=== PATIENT | male | born 1945 | race Caucasian/White ===

== ENCOUNTER 2017-12-08 13:26 | Outpatient (CLI) | payer OTHER, MEDICARE ==
[2017-12-08] MEDS ORDERED: LISI1TAB9 PO (13:45)
[2017-12-08] MEDS ORDERED: FLUT16SP2 BOTHNARES (13:45)
[2017-12-08] MEDS ORDERED: IBUP-24 PO (13:46)
[2017-12-08] MEDS ORDERED: MELA3TAB PO (13:46)
[2017-12-08] MEDS ORDERED: ASPI-1265 PO (13:46)
[2017-12-08] MEDS ORDERED: CHOL100046 PO (13:46)
[2017-12-08 14:49] LABS: BASOPHILS % (AUTO) 0.3 % (0-1); EOSINOPHILS # (AUTO) 0.1 X10'3 (0-0.9); EOSINOPHILS % (AUTO) 1.2 % (0-6); LYMPHOCYTES # (AUTO) 1.2 X10'3 (1.1-4.8); LYMPHOCYTES % (AUTO) 20.2 % (21-51); MEAN CORPUSCULAR HEMOGLOBIN 33.7 PG (27.0-31.0); MEAN CORPUSCULAR HGB CONC 34.1 % (33.0-36.5); MEAN CORPUSCULAR VOLUME 98.6 FL (78-98); MEAN PLATELET VOLUME 9.3 FL (7.4-10.4); MONOCYTES # (AUTO) 0.4 X10'3 (0-0.9); MONOCYTES % (AUTO) 6.4 % (2-12); NEUTROPHILS # (AUTO) 4.1 X10'3 (1.8-7.7); NEUTROPHILS % (AUTO) 71.9 % (42-75); PRE OP HEMOGLOBIN 14.3 g/dL (14.0-17.9); PRE OP PLATELET COUNT 244 X10'3 (140-440); PRE OP PROTIME 10.8 SECONDS (9.0-12.0); RED BLOOD COUNT 4.26 X10'6 (4.70-6.10); RED CELL DISTRIBUTION WIDTH 12.5 % (11.5-14.5)
[2017-12-08 14:54] LABS: CLARITY,URINE CLEAR (Clear); COLOR,URINE YELLOW (Yellow); GLUCOSE, URINE 100 mg/dl (Neg); KETONES,URINE NEGATIVE (Neg); LEUKOCYTE ESTERASE ,URINE NEGATIVE (Neg); NITRITES, URINE NEGATIVE (Neg); OCCULT BLOOD,URINE NEGATIVE (Neg); PROTEIN,URINE NEGATIVE (Neg); UROBILINOGEN,URINE 0.2 E.U/dL (0.2-1.0)
[2017-12-08 14:55] LABS: ALBUMIN 4.1 G/DL (3.4-5.0); ALBUMIN/GLOBULIN RATIO 1.5 (1.1-1.5); ALKALINE PHOSPHATASE 63 IU/L (46-116); BLOOD UREA NITROGEN 18 MG/DL (7-18); BUN/CREATININE RATIO 15.1 (5.4-32.0); CALCIUM 8.8 MG/DL (8.5-10.1); CHLORIDE 104 MMOL/L (99-107); CREATININE 1.19 MG/DL (0.60-1.10); PRE OP ALT 35 U/L (30-65); PRE OP ANION GAP 9 (8-16); PRE OP AST 29 U/L (10-37); PRE OP BILIRUB, TOTAL 0.9 MG/DL (0.0-1.0); PRE OP GLUCOSE 126 MG/DL (70-104); PRE OP POTASSIUM 3.5 MMOL/L (3.4-5.1); PRE OP SODIUM 141 MMOL/L (135-145); TOTAL CARBON DIOXIDE 27.8 MMOL/L (24-32); TOTAL PROTEIN 6.9 G/DL (6.4-8.2); eGFR 60 ML/MIN
[2017-12-08 15:00] LABS: UA COLLECTION TYPE CLN CATCH MIDSTREAM
== END 2017-12-08 23:59 | disposition home or self-care (01) ==
LOC: PRE-OP 13:26 → EDSTATUS 12-15 14:00
PROVIDERS: ATTEND Orthopaedic Surgery
DX: Z01.818 Encounter for other preprocedural examination (principal); M16.11 Unilateral primary osteoarthritis, right hip; Z79.82 Long term (current) use of aspirin; Z87.891 Personal history of nicotine dependence; M25.551 Pain in right hip; Z00.00 Encounter for general adult medical examination without abnormal findings; Z01.812 Encounter for preprocedural laboratory examination
CPT/HCPCS: 36415; 71046; 80053; 81003; 85025; 85610; 85730; 86885; 86900; 86901; 87070

== ENCOUNTER 2018-01-14 05:16 | Inpatient (IN) | payer MEDICARE, OTHER ==
[~2018-01-14] VITALS: Ht 175.3 cm; Wt 83.3 kg
[2018-01-14] VITALS (14 sets, daily range): BP systolic 68–138; BP diastolic 38–87
[~2018-01-14 05:16] MED LIST: ASPI-1265 PO; CHOL100046 PO; FLUT16SP2 BOTHNARES; IBUP-24 PO; LISI1TAB9 PO; MELA3TAB PO; ringers solution, lacted 1,000 ML IV SCH
[2018-01-14] MEDS ORDERED: oxyCODONE SR 10mg (sust. release) tab -2 tabs (20mg) PO ONE (05:30)
[2018-01-14] MEDS ORDERED: celeCOXIB 100mg capsule PO ONE (05:30)
[2018-01-14] MEDS ORDERED: acetaminophen 325mg tablet PO ONE (05:30)
[2018-01-14] MEDS ORDERED: tranexamic acid inj. 1,000 MG in normal saline 100ml IV soln 90 ML IV ONE (05:30)
[2018-01-14] MEDS ORDERED: VANCOMYCIN INJ 1000 MG in NORMAL SALINE 250ml IV.SOLN IV ONE (05:30)
[2018-01-14] MEDS ORDERED: gabapentin 300mg capsule PO ONE (05:30)
[2018-01-14] MEDS ORDERED: metoclopramide 5 mg/ml inj IV ONE (05:30)
[2018-01-14] MEDS ORDERED: cefazolin/dext.iso 2gm/100 ML IV ONE (05:30)
[2018-01-14] MEDS ORDERED: famotidine 20mg tablet PO ONE (05:30)
[2018-01-14] MEDS ORDERED: LIDOcaine 1% (10mg/ml) 2ml vial ONE (05:54)
[2018-01-14] MEDS ORDERED: acetaminophen 325mg tablet PO PRN (06:50)
[2018-01-14] MEDS ORDERED: bisacodyl 10mg suppository rectal RC PRN (06:50)
[2018-01-14] MEDS ORDERED: magnesium hydroxide 30ml (MOM) UD suspension PO PRN (06:50)
[2018-01-14] MEDS ORDERED: HYDROmorphone 1 mg/ml syringe IV PRN (06:50)
[2018-01-14] MEDS ORDERED: diphenhydrAMINE 25mg capsule PO PRN ×2 (06:50)
[2018-01-14] MEDS ORDERED: HYDROcodone/acetaminophen 10/325mg tab PO PRN (06:50)
[2018-01-14] MEDS ORDERED: fluticasone nasal spray 16GM bottle NS PRN (06:50)
[2018-01-14] MEDS ORDERED: ondansetron/PF 4mg/2ml inj IV PRN ×3 (06:50→08:05)
[2018-01-14] MEDS ORDERED: HYDROmorphone inj. 0.5 MG/0.5 ML DISP.SYRIN IV PRN (06:50)
[2018-01-14] MEDS ORDERED: vancomycin 1,000mg inj ONE (06:54)
[2018-01-14 07:00] LABS: BASOPHILS % (AUTO) 0.4 % (0-1); EOSINOPHILS # (AUTO) 0.1 X10'3 (0-0.9); EOSINOPHILS % (AUTO) 1.3 % (0-6); LYMPHOCYTES # (AUTO) 1.3 X10'3 (1.1-4.8); LYMPHOCYTES % (AUTO) 21.2 % (21-51); MEAN CORPUSCULAR HEMOGLOBIN 34.1 PG (27.0-31.0); MEAN CORPUSCULAR HGB CONC 34.7 % (33.0-36.5); MEAN CORPUSCULAR VOLUME 98.1 FL (78-98); MEAN PLATELET VOLUME 9.6 FL (7.4-10.4); MONOCYTES # (AUTO) 0.3 X10'3 (0-0.9); MONOCYTES % (AUTO) 5.1 % (2-12); NEUTROPHILS # (AUTO) 4.3 X10'3 (1.8-7.7); PRE OP HEMATOCRIT 43.2 % (42.0-52.0); PRE OP PLATELET COUNT 220 X10'3 (140-440); RED CELL DISTRIBUTION WIDTH 12.1 % (11.5-14.5)
[2018-01-14] MEDS ORDERED: tetracaine 1% (10mg/ml) pres. free inj. ONE (07:10)
[2018-01-14] MEDS ORDERED: morphine /PF 1mg/ml 10ml inj. ONE (07:12)
[2018-01-14] MEDS ORDERED: MIDAZolam 1mg/ml 10ml vial ONE (07:12)
[2018-01-14] MEDS ORDERED: fentaNYL/PF 50MCG/1 ML 2ML syringe ONE (07:12)
[2018-01-14 07:15] LABS: ALBUMIN 3.9 G/DL (3.4-5.0); ALBUMIN/GLOBULIN RATIO 1.3 (1.1-1.5); ALKALINE PHOSPHATASE 65 IU/L (46-116); BLOOD UREA NITROGEN 20 MG/DL (7-18); BUN/CREATININE RATIO 18.5 (5.4-32.0); CALCIUM 9.4 MG/DL (8.5-10.1); CHLORIDE 106 MMOL/L (99-107); CREATININE 1.08 MG/DL (0.60-1.10); PRE OP ALT 54 U/L (30-65); PRE OP ANION GAP 10 (8-16); PRE OP AST 38 U/L (10-37); PRE OP BILIRUB, TOTAL 0.8 MG/DL (0.0-1.0); PRE OP GLUCOSE 117 MG/DL (70-104); PRE OP POTASSIUM 3.4 MMOL/L (3.4-5.1); PRE OP SODIUM 143 MMOL/L (135-145); TOTAL CARBON DIOXIDE 27.5 MMOL/L (24-32); TOTAL PROTEIN 6.9 G/DL (6.4-8.2); eGFR 68 ML/MIN
[2018-01-14] MEDS ORDERED: ringers solution, lacted 1,000 ML IV SCH (07:18)
[2018-01-14] MEDS ORDERED: morphine 4 MG/ML inj SYRINge IV PRN ×2 (07:20)
[2018-01-14] MEDS ORDERED: fentaNYL/PF 50MCG/1 ML 2ML syringe IV PRN ×2 (07:20)
[2018-01-14] MEDS ORDERED: labetalol 20mg/4ml (5mg/ml) syringe IV PRN (07:20)
[2018-01-14] MEDS ORDERED: hydrALAZINE 20mg/ml inj. IV PRN (07:20)
[2018-01-14] MEDS ORDERED: LIDOcaine 2% (20mg/ml) 5ml vial ONE (07:38)
[2018-01-14] MEDS ORDERED: propofol inj 20 ML IV ONE ×2 (07:38)
[2018-01-14] MEDS ORDERED: dexamethasone sod phosphate 4mg/ml inj. ONE (07:57)
[2018-01-14] MEDS: gabapentin 300mg capsule PO SCH ×3 (08:00→20:56)
[2018-01-14] MEDS: multivitamins, therapeutics tablet PO SCH (08:00)
[2018-01-14] MEDS: lisinopril 10 MG tablet PO SCH (08:00)
[2018-01-14] MEDS: ascorbic acid 500mg tablet PO SCH ×2 (08:00→20:56)
[2018-01-14] MEDS: vitamin D (cholecalciferol) 1,000 unit tablet PO SCH (08:00)
[2018-01-14] MEDS: cefazolin/dext.iso 2gm/100ml 100 ML IV SCH ×2 (08:00→15:46)
[2018-01-14] MEDS ORDERED: diphenhydrAMINE 50 mg/ml inj IV PRN (08:05)
[2018-01-14] MEDS: aspirin 325mg tablet PO SCH (08:30)
[2018-01-14] MEDS ORDERED: ePHEDrine 50MG/ML INJ. ONE (08:35)
[2018-01-14] MEDS ORDERED: ROPIVAcaine inj 250 MG, ketorolac trometh inj. 30 MG, CloNIDine/PF inj 80 MCG, epiNEPHr... IU ONE ×5 (08:37)
[2018-01-14] MEDS: HYDROchlorothiazide 12.5mg capsule PO SCH (11:45)
[2018-01-14] MEDS: potassium cl 20mEq in 1/2 NS 1,000 ML IV SCH ×2 (14:48→15:46)
[2018-01-14] MEDS: sennosides 8.6mg tablet PO SCH (20:56)
[2018-01-14] MEDS: Melatonin 3mg tablet PO SCH (20:56)
[2018-01-15 02:00] VITALS: BP 106/64
[2018-01-15] MEDS: potassium cl 20mEq in 1/2 NS 1,000 ML IV SCH ×3 (02:20→15:10)
[2018-01-15 06:45] LABS: BASOPHILS % (AUTO) 0.2 % (0-1); EOSINOPHILS # (AUTO) 0.1 X10'3 (0-0.9); EOSINOPHILS % (AUTO) 0.9 % (0-6); HEMATOCRIT 35.7 % (42.0-52.0); HEMOGLOBIN 12.1 g/dl (14.0-17.9); LYMPHOCYTES # (AUTO) 0.8 X10'3 (1.1-4.8); LYMPHOCYTES % (AUTO) 8.7 % (21-51); MEAN CORPUSCULAR HEMOGLOBIN 33.7 PG (27.0-31.0); MEAN CORPUSCULAR HGB CONC 33.9 % (33.0-36.5); MEAN CORPUSCULAR VOLUME 99.3 FL (78-98); MEAN PLATELET VOLUME 9.5 FL (7.4-10.4); MONOCYTES # (AUTO) 0.7 X10'3 (0-0.9); MONOCYTES % (AUTO) 7.5 % (2-12); NEUTROPHILS % (AUTO) 82.7 % (42-75); PLATELET COUNT 183 X10'3 (140-440); RED CELL DISTRIBUTION WIDTH 12.2 % (11.5-14.5); WHITE BLOOD COUNT 9.7 X10'3 (4.5-11.0)
[2018-01-15 07:00] VITALS: BP 121/66
[2018-01-15 07:01] LABS: ANION GAP 7 (8-16); CHLORIDE 106 MMOL/L (99-107); POTASSIUM 3.9 MMOL/L (3.5-5.1); SODIUM 138 MMOL/L (135-145); TOTAL CARBON DIOXIDE 24.7 MMOL/L (24-32)
[2018-01-15] MEDS: vitamin D (cholecalciferol) 1,000 unit tablet PO SCH (07:37)
[2018-01-15] MEDS: HYDROchlorothiazide 12.5mg capsule PO SCH (07:38)
[2018-01-15] MEDS: HYDROcodone/acetaminophen 10/325mg tab PO PRN ×3 (07:38→22:59)
[2018-01-15] MEDS: aspirin 325mg tablet PO SCH (07:38)
[2018-01-15] MEDS: lisinopril 10 MG tablet PO SCH (07:41)
[2018-01-15] MEDS: multivitamins, therapeutics tablet PO SCH (07:42)
[2018-01-15] MEDS: ascorbic acid 500mg tablet PO SCH ×2 (07:42→20:16)
[2018-01-15] MEDS: gabapentin 300mg capsule PO SCH ×3 (07:42→20:16)
[2018-01-15] MEDS: cefazolin/dext.iso 2gm/100ml 100 ML IV SCH ×3 (07:48→16:55)
[2018-01-15 11:00] VITALS: BP 130/58
[2018-01-15 15:00] VITALS: BP 107/57
[2018-01-15 18:00] VITALS: BP 103/57
[2018-01-15] MEDS: sennosides 8.6mg tablet PO SCH (20:16)
[2018-01-15] MEDS: Melatonin 3mg tablet PO SCH (20:16)
[2018-01-15 22:00] VITALS: BP 101/56
[2018-01-16] MEDS: cefazolin/dext.iso 2gm/100ml 100 ML IV SCH (00:02)
[2018-01-16] MEDS: potassium cl 20mEq in 1/2 NS 1,000 ML IV SCH ×2 (02:22→03:45)
[2018-01-16] MEDS: HYDROcodone/acetaminophen 10/325mg tab PO PRN ×3 (05:23→15:11)
[2018-01-16 07:02] LABS: BASOPHILS % (AUTO) 0.2 % (0-1); EOSINOPHILS # (AUTO) 0.1 X10'3 (0-0.9); EOSINOPHILS % (AUTO) 1.7 % (0-6); HEMATOCRIT 39.7 % (42.0-52.0); HEMOGLOBIN 13.5 g/dl (14.0-17.9); LYMPHOCYTES # (AUTO) 1.7 X10'3 (1.1-4.8); MEAN CORPUSCULAR VOLUME 99.9 FL (78-98); MEAN PLATELET VOLUME 9.7 FL (7.4-10.4); MONOCYTES # (AUTO) 0.6 X10'3 (0-0.9); MONOCYTES % (AUTO) 7.3 % (2-12); NEUTROPHILS # (AUTO) 5.9 X10'3 (1.8-7.7); NEUTROPHILS % (AUTO) 70.8 % (42-75); PLATELET COUNT 189 X10'3 (140-440); RED BLOOD COUNT 3.97 X10'6 (4.70-6.10); RED CELL DISTRIBUTION WIDTH 12.7 % (11.5-14.5); WHITE BLOOD COUNT 8.3 X10'3 (4.5-11.0)
[2018-01-16 07:15] VITALS: BP 111/66
[2018-01-16] MEDS: ascorbic acid 500mg tablet PO SCH (08:02)
[2018-01-16] MEDS: gabapentin 300mg capsule PO SCH ×2 (08:02→13:56)
[2018-01-16] MEDS: vitamin D (cholecalciferol) 1,000 unit tablet PO SCH (08:02)
[2018-01-16] MEDS: aspirin 325mg tablet PO SCH (08:02)
[2018-01-16] MEDS: lisinopril 10 MG tablet PO SCH (08:03)
[2018-01-16] MEDS: HYDROchlorothiazide 12.5mg capsule PO SCH (08:04)
[2018-01-16] MEDS: multivitamins, therapeutics tablet PO SCH (08:04)
[2018-01-16 09:47] VITALS: BP 123/65
== END 2018-01-16 16:00 | disposition home or self-care (01) | DRG 470 ==
LOC: PAS IN 05:16 → EDSTATUS 07:30 → ORTHO 4S 09:15
PROVIDERS: ADMIT Orthopaedic Surgery; ATTEND Orthopaedic Surgery
PROC: 0SR906Z Replacement of Right Hip Joint with Oxidized Zirconium on Polyethylene Synthetic Substitute, Open Approach (ICD-10-PCS; principal; 2018-01-14 07:17)
DX: M16.11 Unilateral primary osteoarthritis, right hip (principal); D62 Acute posthemorrhagic anemia; I10 Essential (primary) hypertension; Z88.2 Allergy status to sulfonamides
CPT/HCPCS: 36415; 72170; 80051; 80053; 84443; 85025; 86885; 86900; 86901; 87070; 97110; 97116; 97162; 97530; 97535; A4615; A7000; C1758; C1776; G0378; J0171; J0690; J0735; J1100; J1885; J2001; J2250; J2274; J2704; J2765; J2795; J3010; J3370; J3490; J7030; J7120